=== PATIENT | female | born 1970 | race Caucasian/White ===

== ENCOUNTER 2019-04-17 08:10 | Inpatient (IN) | payer MEDICAID ==
[~2019-04-17] VITALS: Ht 160 cm; Wt 76.0 kg
[2019-04-17 08:15] VITALS: Ht 160 cm; Wt 76.0 kg
[2019-04-17 09:10] LABS: PLATELET COUNT 430 x10^3mcL (130-400); RED CELL DISTRIBUTION WIDTH 17.2 % (11.5-14.5)
[2019-04-17 09:20] LABS: CALCIUM 9.7 mg/dL (8.5-10.1); CARBON DIOXIDE 15.1 mmol/L (21-32); CREATININE SERUM 1.4 mg/dL (0.6-1.0); POTASSIUM SERUM 4.9 mmol/L (3.5-5.1)
[2019-04-17 09:32] LABS: BILIRUBIN TOTAL 0.65 mg/dL (0.20-1.00); T4(THYROXINE) 8.1 ug/dL (4.7-13.3); TOTAL PROTEIN, SERUM 7.9 g/dL (6.4-8.2)
[2019-04-17 09:36] LABS: ALBUMIN 2.8 g/dL (3.4-5.0)
[2019-04-17 11:30] LABS: MAGNESIUM 1.8 mg/dL (1.8-2.4); PHOSPHOROUS 4.3 mg/dL (2.5-4.9)
[2019-04-17 11:42] LABS: BAND NEUTROPHIL 2 % (0-10); BASOPHIL 0 % (0-2); MONOCYTE 6 % (0-7); PLATELET MORPHOLOGY PLATELETS INCREASED; SEGMENTED NEUTROPHILS 91 % (37-75)
[2019-04-17 11:43] LABS: rbc morphology (normal/abnorm) ABNORMAL (NORMAL)
[2019-04-17] MEDS ORDERED: METFORMIN HCL500 MG PO (12:16)
[2019-04-17] MEDS ORDERED: LOSARTAN POTASS50 M1 PO (12:16)
[2019-04-17 15:23] VITALS: BP 154/95
[2019-04-17 18:42] LABS: microscopic required? YES; urine erythrocyte 2+ (NEGATIVE)
[2019-04-17 18:48] LABS: AMPHETAMINE QUAL UR NONE DETECTED (See below)
[2019-04-18 05:18] LABS: BASOPHIL % 2.2 % (0-2); PLATELET COUNT 432 x10^3mcL (130-400); RED CELL DISTRIBUTION WIDTH 18.1 % (11.5-14.5)
[2019-04-18 05:34] LABS: CALCIUM 8.7 mg/dL (8.5-10.1); CARBON DIOXIDE 21.3 mmol/L (21-32); CREATININE SERUM 1.4 mg/dL (0.6-1.0)
[2019-04-18 07:40] VITALS: BP 150/77
[2019-04-18 10:53] LABS: CALCIUM 8.5 mg/dL (8.5-10.1); CARBON DIOXIDE 19.7 mmol/L (21-32); CREATININE SERUM 1.5 mg/dL (0.6-1.0); POTASSIUM SERUM 4.6 mmol/L (3.5-5.1)
[2019-04-18 11:51] VITALS: BP 125/78
[2019-04-18 16:27] VITALS: BP 147/80
[2019-04-18 18:44] VITALS: BP 147/79
[2019-04-18 20:47] VITALS: BP 148/79
[2019-04-19] VITALS (7 sets, daily range): BP systolic 116–153; BP diastolic 64–86
[2019-04-19 07:52] LABS: BASOPHIL % 0.8 % (0-2)
[2019-04-19 07:54] LABS: PLATELET COUNT 413 x10^3mcL (130-400); RED CELL DISTRIBUTION WIDTH 18.1 % (11.5-14.5)
[2019-04-19 07:55] LABS: CALCIUM 8.7 mg/dL (8.5-10.1); CARBON DIOXIDE 20.9 mmol/L (21-32); CREATININE SERUM 1.5 mg/dL (0.6-1.0); POTASSIUM SERUM 4.2 mmol/L (3.5-5.1)
[2019-04-20] VITALS (8 sets, daily range): BP systolic 131–155; BP diastolic 70–86
[2019-04-20 06:45] LABS: CALCIUM 8.4 mg/dL (8.5-10.1); CARBON DIOXIDE 23.5 mmol/L (21-32); CREATININE SERUM 1.7 mg/dL (0.6-1.0); POTASSIUM SERUM 4.3 mmol/L (3.5-5.1)
[2019-04-20 06:47] LABS: BASOPHIL % 0.3 % (0-2)
[2019-04-20 06:48] LABS: PLATELET COUNT 404 x10^3mcL (130-400); RED CELL DISTRIBUTION WIDTH 19.2 % (11.5-14.5)
[2019-04-20] MEDS ORDERED: XARELTO15 M1 PO (14:20)
[2019-04-20] MEDS ORDERED: TOR15I IV (14:20)
[2019-04-20] MEDS ORDERED: APR25 PO (14:20)
[2019-04-20] MEDS ORDERED: TYL325 PO (14:21)
[2019-04-21 05:34] VITALS: BP 136/79
[2019-04-21 07:18] LABS: CALCIUM 9.4 mg/dL (8.5-10.1); CREATININE SERUM 1.7 mg/dL (0.6-1.0); POTASSIUM SERUM 3.9 mmol/L (3.5-5.1)
[2019-04-21 09:07] VITALS: BP 156/87
[2019-04-21 09:56] LABS: BASOPHIL % 0.1 % (0-2); PLATELET COUNT 346 x10^3mcL (130-400)
[2019-04-21 09:59] LABS: RED CELL DISTRIBUTION WIDTH 18.9 % (11.5-14.5)
[2019-04-21 12:59] VITALS: BP 162/51
[2019-04-21 16:40] VITALS: BP 141/79
[2019-04-21 21:16] VITALS: BP 137/73
[2019-04-22 05:53] VITALS: BP 126/71
[2019-04-22 06:49] LABS: BASOPHIL % 0.7 % (0-2); PLATELET COUNT 370 x10^3mcL (130-400)
[2019-04-22 07:02] LABS: CALCIUM 8.7 mg/dL (8.5-10.1); CARBON DIOXIDE 23.6 mmol/L (21-32); CREATININE SERUM 1.7 mg/dL (0.6-1.0); POTASSIUM SERUM 4.7 mmol/L (3.5-5.1)
[2019-04-22 07:32] LABS: RED CELL DISTRIBUTION WIDTH 18.4 % (11.5-14.5)
[2019-04-22 09:02] VITALS: BP 126/71
[2019-04-22 09:37] VITALS: BP 133/74
[2019-04-22 17:44] VITALS: BP 151/84
[2019-04-22 21:22] VITALS: BP 145/78
== END 2019-04-22 21:00 | disposition short-term general hospital (02) | DRG 134 ==
LOC: ED 08:10 → DU 11:25 → IC 11:25 → DU 04-18 17:26 → IC 04-18 17:28 → DU 04-18 18:38 → MU 04-21 17:15
PROVIDERS: Emergency Medicine; Internal Medicine; ADMIT General Practice
DX: I26.99 Other pulmonary embolism without acute cor pulmonale (principal); J96.01 Acute respiratory failure with hypoxia; I50.21 Acute systolic (congestive) heart failure; J90 Pleural effusion, not elsewhere classified; E11.42 Type 2 diabetes mellitus with diabetic polyneuropathy; E11.65 Type 2 diabetes mellitus with hyperglycemia; N18.3 Chronic kidney disease, stage 3 (moderate); E87.1 Hypo-osmolality and hyponatremia; Z89.422 Acquired absence of other left toe(s); Z68.27 Body mass index [BMI] 27.0-27.9, adult; Z79.84 Long term (current) use of oral hypoglycemic drugs
CPT/HCPCS: 36600; 82962; 83880; 87107; 94150; G0378; J1450; J1644; J1885; J1940; J2270; J2405; J2543; J3490; J7050; J7620; Q0092; Q9967

== ENCOUNTER 2019-05-05 11:12 | Inpatient (IN) | payer MEDICAID ==
[~2019-05-05] VITALS: Ht 160 cm; Wt 73.1 kg
[~2019-05-05 11:12] MED LIST: APR25 PO; LOSARTAN POTASS50 M1 PO; METFORMIN HCL500 MG PO; TOR15I IV; TYL325 PO; XARELTO15 M1 PO
[2019-05-05 11:16] VITALS: Ht 160 cm; Wt 73.1 kg
--- NOTE | 2019-05-05 11:17 | NUR ---
PT TO ROOM 7 VIA WC, PT ASSISTED INTO GOWN, ASSISTED INTO HOSPITAL GOWN, PLACED ON CM.
--- NOTE | 2019-05-05 11:33 | NUR ---
PT AWAKE AND ALERT. PT PRESENTS TO ED WITH C/O SOB AND RT SIDED BACK PAIN SINCE YESTERDAY. PT IS VISIBLY IN SOME DISTRESS. PT IS TACHYPNEIC. PT ABLE TO SPEAK IN COMPLETED SENTENCES. PT DENIES COUGH BUT STATES SHE HAS THE URGE TO COUGH BUT CANNOT. PT'S SKIN IS WARM DRY AND INTACT. PT PLACED ON FULL CM. DR GRAMAJO AT BEDSIDE FOR MSE.
--- NOTE | 2019-05-05 11:38 | NUR ---
PT HAD A RECENT 3RD 4TH AND 5TH TOE AMPUTATION ON THE LT FOOT. NO SIGNS OF INFECTION NOTED.
[2019-05-05 12:06] LABS: PLATELET COUNT 485 x10^3mcL (130-400)
[2019-05-05 12:24] LABS: CALCIUM 9.1 mg/dL (8.5-10.1); CREATININE SERUM 1.5 mg/dL (0.6-1.0); POTASSIUM SERUM 4.6 mmol/L (3.5-5.1)
[2019-05-05 12:29] LABS: ALBUMIN 2.8 g/dL (3.4-5.0); BILIRUBIN TOTAL 0.44 mg/dL (0.20-1.00); TOTAL PROTEIN, SERUM 7.3 g/dL (6.4-8.2)
--- NOTE | 2019-05-05 12:44 | NUR ---
DR GRAMAJO AT BEDSIDE TO DISCUSS PLAN OF CARE
[2019-05-05] MEDS ORDERED: GLIPIZIDE2.5 M1 PO (12:47)
[2019-05-05] MEDS ORDERED: FERROUS SULFAT325 M2 PO (12:48)
[2019-05-05] MEDS ORDERED: STOOL SOFTENER50 MG PO (12:49)
[2019-05-05] MEDS ORDERED: CLOPIDOGREL75 M1 PO (12:49)
[2019-05-05] MEDS ORDERED: APAP500 MG PO (12:49)
[2019-05-05] MEDS ORDERED: AMLODIPINE BESY10 M2 PO (12:50)
[2019-05-05] MEDS ORDERED: BACTRIM1 TAB PO (12:51)
[2019-05-05 13:03] LABS: BAND NEUTROPHIL 0 % (0-10); MONOCYTE 7 % (0-7); SEGMENTED NEUTROPHILS 88 % (37-75)
[2019-05-05 13:06] LABS: BASOPHIL 0 % (0-2); PLATELET MORPHOLOGY PLATELETS INCREASED
[2019-05-05 13:07] LABS: rbc morphology (normal/abnorm) ABNORMAL (NORMAL)
[2019-05-05 13:27] LABS: UA SPECIFIC GRAVITY 1.025 (1.005-1.035); microscopic required? YES; urine erythrocyte 1+ (NEGATIVE)
--- NOTE | 2019-05-05 13:36 | NUR ---
HEPARIN DRIP INITIATED AT THIS TIME.
--- NOTE | 2019-05-05 13:55 | NUR ---
RESIDENT AT BEDSIDE TO DISCUSS PLAN OF CARE
[2019-05-05 14:25] LABS: MAGNESIUM 2.4 mg/dL (1.8-2.4); PHOSPHOROUS 4.5 mg/dL (2.5-4.9)
--- NOTE | 2019-05-05 14:25 | NUR ---
PORTABLE ULTRASOUND AT BEDSIDE
[2019-05-05 14:30] LABS: CHOLESTEROL/HDL RATIO 2.2
[2019-05-05 14:34] LABS: FREE T4 1.16 ng/dL (0.76-1.46); FREE THYROXINE INDEX 2.8 ug/dL (1.4-4.5); T4(THYROXINE) 7.7 ug/dL (4.7-13.3)
[2019-05-05 14:55] LABS: AMPHETAMINE QUAL UR NONE DETECTED (See below)
--- NOTE | 2019-05-05 15:30 | NUR ---
PT RESTING IN HIGH FOWLERS. PT REPORTS SHE IS FEELING A LITTLE BETTER. PT ON FULL CM. CALL LIGHT WITHIN REACH. RESP E/U
[2019-05-05 15:55] LABS: T3 TOTAL 0.62 ng/mL
--- NOTE | 2019-05-05 16:22 | NUR ---
REPORT CALLED TO NISHA, ICU NURSE
--- NOTE | 2019-05-05 16:30 | NUR ---
RECIEVED PATIENT FROM ED AT THIS TIME VIA GURNEY ATTACHED TO BOTTOM FILLER ACCOMPANIED BY NURSE. PATIENT BALE TO WALK FROM GURNEY TO BED WITH MINIMAL ASSIST, STEDAY GAIT NOTED. VS UPON ADMISSION: TEMP 98.1 F, NIBP 148/93, MAP 103, HR 86, RR 21 AND 02 SAT 91% ON 4L NC. RESPIRATIONS ARE SHALLOW AND LABORED. PATIENT CURRENLTY DENIES PAIN AT THIS TIME. NITRO PATCH NOTED TO LEFT UPPER CHEST. HX OF PE, PT CURRENLTY ON HEPARIN DRIP INFUSING TO LFA IV WITH NO SIGNS OF INFILTRATION NOTED. 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 PATIENT IS A/0 X4. LANGUAGE BARRIER-SAUDI ARABIAN SPEAKING. ABLE TO FOLLOW COMMANDS AND MAKE NEEDS KNOWN. BED TO LOWEST POSITION, SIDE RAILS UP X2, CALL LIGHT WITHIN REACH. WILL CONTINUE TO MONITOR.
[2019-05-05 16:53] VITALS: BP 148/93
[2019-05-05 17:27] VITALS: BP 153/76
[2019-05-05 19:25] VITALS: BP 151/70
--- NOTE | 2019-05-05 20:13 | NUR ---
PTT 108.0 CALLED FROM LAB. HEPARIN GTT HELD AT THIS TIME FOR 1 HOUR AND WILL REDUCE INFUSION BY 200 UNITS/HR PER HEPARIN DRIP PROTOCOL. WILL CONT TO MONITOR.
--- NOTE | 2019-05-05 20:40 | NUR ---
RT KAILA AT BEDSIDE TO GIVE PT BREATHING TREATMENT.
--- NOTE | 2019-05-05 21:13 | NUR ---
HEPARIN GTT TITRATED BACK ON AND REDUCED INFUSION TO 110O UNITS/HR PER HEPARIN GTT PROTOCOL. WILL ORDER NEXT PTT AT 05/06/19 @ 0115.
[2019-05-05 23:05] VITALS: BP 144/80
--- NOTE | 2019-05-06 01:10 | NUR ---
ASSISTED PT TO BEDSIDE COMMODE. PT HAD APPROX OF 400 ML OF CLEAR YELLOW URINE AND MODERATE AMOUNT OF BROWN STOOL.
--- NOTE | 2019-05-06 01:20 | NUR ---
911 EMERGENCY SERVICES DISPATCHERFRIDA CLIFTON AT BEDSIDE TO DRAW PTT LAB.
--- NOTE | 2019-05-06 02:21 | NUR ---
LAB CALLED, PTT 58.4. NO CHANGE IN TITRATION PER HEPARIN GTT PROTOCOL. WILL ORDER NEXT PTT LAB.
--- NOTE | 2019-05-06 02:28 | NUR ---
DR. DUKE AT BEDSIDE WITH NATALIE NARAYANAN FOR ASSIST IN TRANSLATION TO UPDATE PT ON POC.
[2019-05-06 03:32] VITALS: BP 138/74
[2019-05-06 05:28] LABS: BASOPHIL % 0.9 % (0-2)
[2019-05-06 05:34] LABS: CARBON DIOXIDE 20.6 mmol/L (21-32); CREATININE SERUM 1.5 mg/dL (0.6-1.0); MAGNESIUM 2.3 mg/dL (1.8-2.4); PHOSPHOROUS 4.4 mg/dL (2.5-4.9); POTASSIUM SERUM 4.8 mmol/L (3.5-5.1)
[2019-05-06 05:39] LABS: PLATELET COUNT 463 x10^3mcL (130-400); RED CELL DISTRIBUTION WIDTH 17.6 % (11.5-14.5)
--- NOTE | 2019-05-06 07:15 | NUR ---
RECEIVED PT'S REPORT FROM LEAVING NURSE. PT REST ON BED, AA/O X4. PT BREATHING ON O2 4L VIA NC, EVEN, UNLABORED. SHALLOW BREATHING. PT DENIED CHEST PAIN AND SOB AT THIS TIME O2 SAT 95%. PT ON HEPARIN DRIP 1100 U/HR, WAITING FOR PTT RESULT. WILL CONTINUE TO MONITOR.
--- NOTE | 2019-05-06 07:15 | NUR ---
GAVE REPORT TO LADY COLE. UPDATES GIVEN, QUESTIONS ANSWERED. ENDORSED CARE.
--- NOTE | 2019-05-06 07:44 | NUR ---
ECHOCARDIOGRAM PENDING-HAVING BREAKFAST
[2019-05-06 08:00] VITALS: BP 145/70
--- NOTE | 2019-05-06 08:19 | NUR ---
PT'S PTT 63.0 WITHIN THERAPEUTIC RANG, 2ND THERAPEUTIC. HEPARIN DRIP REMAINING 1100U/HR. WILL SCHEDULE PT'S NEXT PTT TOMORROW DAILY.
--- NOTE | 2019-05-06 09:56 | NUR ---
DR. TRIPP, RESIDENTS, DESIGN CELL ENGINEER AND PRIMARY RN AT BEDSIDE FOR ROUNDING. PLAN OF CARE DISCUSSED. ALL PARTIES IN AGREEMENT. INFORMED OF DR. CUELLO STATING PT CAN BE TRANSFERRED TO LOWER ACUITY UNIT.
--- NOTE | 2019-05-06 10:09 | NUR ---
RT WEANING PT O2 FROM 4 L TO 3L VIA NC. PT TOLERATE WELL, O2 SAT 93%. SHALLOW BREATHING NOTED.
--- NOTE | 2019-05-06 11:50 | NUR ---
PT'S AT BEDSIDE. PT'S CONDITION UPDATED TO HER PER PT'S CONSENT. PT IS AWARE SHE WILL TRANFERED TO [facility] UNIT TODAY PER ORDER.
[2019-05-06 12:28] VITALS: BP 147/73
--- NOTE | 2019-05-06 12:38 | NUR ---
Discount pharmacy card and list to low cost medical clinics given to patient by Yesenia.
--- NOTE | 2019-05-06 15:14 | NUR ---
PT IS READY TO TRANSFER TO [facility], PT'S REPORT GIVEN TO RECEIVING NURSE DECLAN. PT RESTING ON BED, NO COMPLAIN OF SOB AND CHEST PAIN. PT'S VS STABLE: BP 149/87, HR 93, O2 SAT 96% VIA 3L NC. WILL TRANSFER PT VIA WHEELCHAIR.
--- NOTE | 2019-05-06 15:55 | NUR ---
ASSUMED CARE OF PATIENT. TELEMONITOR #4 PLACED. NO APPARENT DISTRESS NOTED. NO COMPLAINTS OF PAIN OR DISCOMFORT. WILL CONTINUE TO MONITOR.
--- NOTE | 2019-05-06 16:13 | NUR ---
PATIENT ALERT AND ORIENTED X4. ON TELE #4, SHOWING SINUS RHYTHM WITH DEPRESSED T WAVES. ALL PULSES PALPABLE, BLE +1 EDEMA. LUNG SOUNDS CLEAR BILATERALLY WITH NO ADVENTITIOUS BREATH SOUNDS, BILATERAL BASES DIMINISHED. CURRENTLY UTILIZING 3L O2 VIA NC. BOWEL SOUNDS ACTIVE IN ALL 4 QUADRANTS, ENDORSING LAST BM THIS MORNING. VOIDING WITH NO ISSUE. UTILIZING BEDSIDE COMMODE. GENERALIZED WEAKNESS. LLE DRESSING INTACT, PICTURES FROM ICU IN CHART. DRESSING REMAINS CDI AT THIS TIME. NO COMPLAINTS AT THIS TIME. IV TO LFA PATENT AND INFUSING NS AT 100ML/HR AND HEPARIN DRIP AT 1100 UNITS/HR. ORIENTED TO ROOM. ALL NEEDS MET. BED LOCKED AND IN LOWEST POSITION. CALL LIGHT WITHIN REACH. WILL CONTINUE TO MONITOR.
[2019-05-06 16:34] VITALS: BP 144/75
[2019-05-06 17:55] VITALS: BP 144/82
--- NOTE | 2019-05-06 18:40 | NUR ---
PATIENT SEEN RESTING IN BED WITH EQUAL AND UNLABORED RESPIRATIONS. REMAINS ON 3L O2 VIA NC. IV ON LFA PATENT AND CONTINUES TO INFUSE 10ML/HR NS AND 1100 UNITS/HR HEPARIN. NO REDNESS/SWELLING NOTED. DRESSING TO LLE REMAINS CDI. WILL ENDORSE CARE TO ONCOMING RN.
--- NOTE | 2019-05-06 19:38 | NUR ---
RECEIVED PATIENT IN BED AWAKE, ALERT AND ORIENTED WITH NO SIGN OF ACUTE RESPIRATORY DISTRESS. BREATHING EASY AND NONLABOR SATTING AT 98% ON O2 AT 3L VIA NC. TELE#4 SR WITH ELEVATED T WAVE ON MONITOR, DENIES CHESTPAIN. IV TO LFA INTACT AND INFUSING WELL, ON HEPARIN DRIP INFUSING AT 1100 UNITS/HR PER PROTOCOL. WILL CONTINUE TO MONITOR. CALL LIGHT WITHIN REACH.
[2019-05-06 20:56] VITALS: BP 144/82
--- NOTE | 2019-05-07 00:01 | NUR ---
PATIENT APPEARS SLEEPING WITH EYES CLOSED, NO SIGN OF PAIN AND DISCOMFORT NOTED. WILL CONTINUE TO MONITOR.
--- NOTE | 2019-05-07 05:06 | NUR ---
SLEPT FAIRLY DENIES PAIN AND DISCOMFORT THE ENTIRE SHIFT. ALL NEEDS ATTENDED.
[2019-05-07 05:21] VITALS: BP 138/79
[2019-05-07 06:33] LABS: CALCIUM 8.6 mg/dL (8.5-10.1); CARBON DIOXIDE 22.8 mmol/L (21-32); CREATININE SERUM 1.4 mg/dL (0.6-1.0); POTASSIUM SERUM 4.4 mmol/L (3.5-5.1)
[2019-05-07 06:58] LABS: BASOPHIL % 1.3 % (0-2)
[2019-05-07 07:20] LABS: PLATELET COUNT 448 x10^3mcL (130-400); RED CELL DISTRIBUTION WIDTH 17.1 % (11.5-14.5)
--- NOTE | 2019-05-07 07:29 | NUR ---
REPORT FROM LAB = PATIENT'S PTT = 68.0; HEPARIN DOSE TO 1000 UNITS/HR PER PROTOCOL. NEXT PTT SCHEDULED AT 1130.
--- NOTE | 2019-05-07 08:00 | NUR ---
SHIFT ASSESSMENT DONE. PATIENT POLISH SPEAKING, A/A/OX4. TELE#4, SR W/ DEPRESSED S-T SEGMENT. HR =79. DENIED CHEST PAIN. BREATHING SOUND DIMINISHED ASHTYN BASES. O2 SAT 98% ON 3L VIA N/C. SOB ON EXCERTION. ON HEPARIN DRIP 1000 UNITS/HR W/ NS 10CC/HR. IV SITE TO LFA INTACT. UNHEALED SURGICAL WOUND TO L FOOT AFTER LT 3RD-4TH-5TH TOES AMPUTATION. DRSG TO LT FOOT D/I. DENIED PAIN. BSC IN PLACE. CALL LIGHT IN REACH.
--- NOTE | 2019-05-07 08:46 | NUR ---
ECHOCARDIOGRAM CANCELLATION REQUESTED-LAST ECHO-04/15-COPY IN CHART
[2019-05-07 09:20] VITALS: BP 132/72
--- NOTE | 2019-05-07 11:12 | NUR ---
WOUND CARE EVALUATION NOTE: REASON FOR EVALUATION: LEFT FOOT SURGICAL WOUND SKIN ASSESSMENT DONE WITH THIS 48 Y/O FEMALE PT ADMITTED FROM HOME TO [facility] WITH S/P SURGICAL WOUND TO LEFT FOOT TMA. PAST MEDICAL HX INCLUDES PE,HTN,DM CHARGE NURSE [place] TO [place] WITH DESCRIPTION OF WOUND CONDITION, TREATMENT PLAN AND WOUND CARE INSTRUCTIONS. PT ALSO, INSTRUCTED TO FOLLOW UP SURGEON OUT PATIENT.PER PT. SHE HAD AN APPOINTMENT MADE PRIOR THIS ADMISSION PLAN OF CARE DISCUSSED WITH PRIMARY RN AND PT. ALL QUESTIONS ANSWERED AND PT VERBALIZING UNDERSTANDING AND AGREEABLE. INTEGUMENTARY: -LEFT FOOT SURGICAL WOUND S/P TMA, 9X5CM DEPTH UTD WITH 100% MIXED BROWN AND YELLOW SLOUGH TISSUE, NO DRAINAGE WITH MILD ODOR, LUIS-WOUND SKIN INTACT RECOMMENDATIONS: -FOLLOW UP SURDEON OUT PATIENT -CLEANSE LEFT FOOT SURGICAL WOUND WITH WOUND CARE SOLUTION, PACK WITH SOAKED 4X4 BETADINE GUAZES, COVER WITH DRY DRESSING AND WRAP JM BANDAGE QD AND PRN IF SOILING -APPLY HEEL RAISER TO LEFT HEEL WHEN IN BED -OFFLOAD BILATERAL HEELS BY PLACING PILLOWS UNDER CALVES UNLESS OTHERWISE CONTRAINDICATED -PRESSURE REDISTUBUTION SURFACE THERAPY -ASSIST TURN AND REPOSITION Q2H -CONTINUE TO FOLLOW RD RECOMMENDATIONS -PLEASE DISCHARGE WITH TREATMENT SUPPLIES ALL ABOVE RECOMMENDATIONS DISCUSSED WITH PRIMARY RN PLEASE CONTACT WOUND CARE NURSE FOR ANY QUESTION AND CHANGE OF WOUND CONDITION.
--- NOTE | 2019-05-07 12:35 | NUR ---
LAB REPORTED PTT = 58.8; KEEP HEPARIN DOSE AT 1000 UNITS/HR. NEXT PTT SCHEDULED AT 1530 PER PROTOCOL.
[2019-05-07 13:24] VITALS: BP 124/72
--- NOTE | 2019-05-07 16:05 | NUR ---
PTT = 60.6; WITHIN THERAPEUTIC RANGE X2. PT = 12.0; INR = 1.2. WOULD GIVE COUMADIN 10MG PO TODAY PER ORDER.
[2019-05-07 17:55] VITALS: BP 115/71
--- NOTE | 2019-05-07 18:00 | NUR ---
DR. DOAN CAME TO SEE PATIENT. NEW ORDER OF LASIX 40MG IVP GIVEN.
--- NOTE | 2019-05-07 18:27 | NUR ---
NO SOB ON 2L VIA N/C. O2 SAT 98%. ON HEPARIN DRIP. IV TO LFA INTACT. FINISHED 80% CCHO DIET DINNER. DRSG TO L FOOT D/C/I. DENIED PAIN. VOID X3, 900CC VIA BSC. NO BM THIS SHIFT. ENDORSED CARE TO NOC NURSE.
--- NOTE | 2019-05-07 19:26 | NUR ---
RECEIVED PATIENT IN BED AWAKE WITH NO SIGN OF PAIN AND DISCOMFORT. BREATHING EASY AND NONLABOR SATTING AT 98% ON O2 AT 2L VIA NC. TELE#4 SR WITH DEPRESSED T WAVE ON MONITOR. ON HEPARIN DRIP INFUSING AT 10ML/HR (1000 UNITS/HR) PER PROTOCOL. NEXT PTT SCHEDULED AT 0500 05/08/19. WILL CONTINUE TO MONITOR. CALL LIGHT WITHIN REACH.
[2019-05-07 20:51] VITALS: BP 133/72
--- NOTE | 2019-05-08 01:45 | NUR ---
APPEARS SLEEPING WITH EYES CLOSED BREATHING EASYA ND NONLABOR. WILL CONTINUEN TO MONITOR.
--- NOTE | 2019-05-08 05:24 | NUR ---
SLEPT AT LONG INTERVALS, DENIES PAINA ND DISCOMFORT THE ENTIRE SHIFT. ALL NEEDS ATTENDED.
[2019-05-08 05:52] VITALS: BP 128/61
[2019-05-08 06:32] LABS: CALCIUM 9.2 mg/dL (8.5-10.1); CARBON DIOXIDE 18.6 mmol/L (21-32); CREATININE SERUM 1.4 mg/dL (0.6-1.0); POTASSIUM SERUM 4.1 mmol/L (3.5-5.1)
--- NOTE | 2019-05-08 07:45 | NUR ---
ALERT AND ORIENTED. ON 02 2L NC. LUNG SOUNDS CLEAR,DIMINISHED. NO RESP DISTRESS. RT PROTOCOL HEPARIN PROTOCOL FOR P.E. CURRENTLY INFUSING 1000/10 CC HOUR. USES BEDSIDE COMMODE. ALSO HAS WALKER IN ROOM. LEFT FOOT WRAPPED CLEAN AND DRY. VSS. CALL LIGHT WITHIN REACH. SITTING UP EATING BREAKFAST.
[2019-05-08 07:50] VITALS: BP 115/58
--- NOTE | 2019-05-08 07:55 | NUR ---
T.C. TO LAB FOR PTT RESULT. 55.3. NO CHANGE IN HEPARIN INFUSION RATE. CONTINUES AT 1000 UNITS/10 ML Q 1 HOUR. NEXT PTT 05/09/19.
[2019-05-08 08:26] LABS: BASOPHIL % 1.3 % (0-2); PLATELET COUNT 442 x10^3mcL (130-400); RED CELL DISTRIBUTION WIDTH 18.3 % (11.5-14.5)
--- NOTE | 2019-05-08 08:51 | NUR ---
PT C/O TIGHTNESS TO LEFT FOOT DRESSING. SHOWED PT AND FAMILY DRESSING IS ACTUALLY LOOSE. ELEVATED ON PILLOW. CONTINUES TO DENY NEED FOR PAIN MED.
[2019-05-08] MEDS ORDERED: LASIX20 MG PO (10:55)
[2019-05-08] MEDS ORDERED: ISOSORBIDE DINI10 MG PO (10:58)
[2019-05-08] MEDS ORDERED: CARVEDILOL12.5 M1 PO (10:59)
[2019-05-08] MEDS ORDERED: COUMADIN3 MG PO (11:01)
[2019-05-08 11:49] VITALS: BP 128/62
--- NOTE | 2019-05-08 12:09 | NUR ---
DR. TIERNEYED IN TO REVIEW D/C INSTRUCTIONS WITH PT. ASSISTED WITH TRANSLATION IN [place]. PT WAS MADE AWARE OF ALL NEW MEDS AND IMPORTANCE OF TAKING THEM DIRRECTED. PT TO TAKE COUMADIN DAILY AND F/U AT COUMADIN CLINIC ON SATURDAY ON AT NOON ADDRESS AND PHONE NUMBER WILL BE PROVIDED IN D/C PAPERWORK. PT INSTRUCTED TO STOP TAKING CURRENT HOME MEDS AND TAKE NEW PRESCRIPTION SINCE PT HAD ALL CARDIAC MEDS CHANGE BY CONSTRUCTION LABORER. PT VEBALIZED UNDERSTANDING OF INSTRUCTIONS. ALL QUESTIONS AND CONCERNS ADDRESSED.
[2019-05-08 12:50] VITALS: BP 128/62
[2019-05-08] MEDS ORDERED: BAYER ASPIRIN C81 MG PO (13:02)
--- NOTE | 2019-05-08 13:42 | NUR ---
PT GOING HOME. REMOVED LEFT FOOT DRESSING PHOTO TAKEN CLEANSED REAPPLIED IODINE AND GUAZE DRESSING. IV DC'D TELE # 4 RETURNED TO TELE STATION. WAITING FOR TO COME TO REVIEW DC INSTRUCTIONS.
== END 2019-05-08 14:38 | disposition home or self-care (01) | DRG 134 ==
LOC: ED 11:12 → IC 12:56 → DU 05-06 15:38
PROVIDERS: Emergency Medicine; ADMIT Internal Medicine
DX: I26.99 Other pulmonary embolism without acute cor pulmonale (principal); J96.01 Acute respiratory failure with hypoxia; N17.0 Acute kidney failure with tubular necrosis; I13.0 Hypertensive heart and chronic kidney disease with heart failure and stage 1 through stage 4 chronic kidney disease, or unspecified chronic kidney disease; I50.23 Acute on chronic systolic (congestive) heart failure; N18.3 Chronic kidney disease, stage 3 (moderate); E11.22 Type 2 diabetes mellitus with diabetic chronic kidney disease; E11.65 Type 2 diabetes mellitus with hyperglycemia; I42.9 Cardiomyopathy, unspecified; D53.9 Nutritional anemia, unspecified; E87.1 Hypo-osmolality and hyponatremia; Z89.422 Acquired absence of other left toe(s); Z68.29 Body mass index [BMI] 29.0-29.9, adult; Z86.711 Personal history of pulmonary embolism; Z79.01 Long term (current) use of anticoagulants; Z79.84 Long term (current) use of oral hypoglycemic drugs
CPT/HCPCS: 36600; 82962; 83880; 84439; 94150; G0378; J1644; J1815; J1940; J7030; J7620; Q0092

== ENCOUNTER 2019-08-27 08:03 | Inpatient (IN) | payer OTHER ==
[~2019-08-27] VITALS: Ht 160 cm; Wt 78.9 kg
[~2019-08-27 08:03] MED LIST changes: +AMLODIPINE BESY10 M2 PO; +APAP500 MG PO; +BACTRIM1 TAB PO; +BAYER ASPIRIN C81 MG PO; +CARVEDILOL12.5 M1 PO; +CLOPIDOGREL75 M1 PO; +COUMADIN3 MG PO; +FERROUS SULFAT325 M2 PO; +GLIPIZIDE2.5 M1 PO; +ISOSORBIDE DINI10 MG PO; +LASIX20 MG PO; -METFORMIN HCL500 MG PO; +METFORMIN HYDR500 M1 PO; +STOOL SOFTENER50 MG PO
[2019-08-27 08:07] VITALS: Ht 160 cm; Wt 78.9 kg
[2019-08-27 09:04] LABS: BASOPHIL % 0.5 % (0-2); PLATELET COUNT 309 x10^3mcL (130-400)
[2019-08-27 09:06] LABS: RED CELL DISTRIBUTION WIDTH 21.5 % (11.5-14.5)
[2019-08-27 09:35] LABS: ALKALINE PHOSPHATASE 133 U/L (46-116); ALT/SGPT 13 U/L (14-59); AST/SGOT 11 U/L (15-37); BILIRUBIN TOTAL 0.3 mg/dL (0.20-1.00); CALCIUM 8.6 mg/dL (8.5-10.1); CARBON DIOXIDE 16.1 mmol/L (21-32); CHLORIDE SERUM 111 mmol/L (98-107); CREATININE SERUM 1.9 mg/dL (0.6-1.0); GFR1 30 mL/min; GLUCOSE SERUM 111 mg/dL (74-106); POTASSIUM SERUM 5.4 mmol/L (3.5-5.1); SODIUM SERUM 140 mmol/L (136-145); TOTAL PROTEIN, SERUM 7.2 g/dL (6.4-8.2); rbc morphology (normal/abnorm) ABNORMAL (NORMAL)
[2019-08-27 09:55] LABS: ALBUMIN 3.2 g/dL (3.4-5.0)
[2019-08-27 10:40] LABS: microscopic required? YES; urine erythrocyte NEGATIVE (NEGATIVE)
[2019-08-27 14:12] VITALS: BP 134/67
[2019-08-27 16:46] VITALS: BP 136/76
[2019-08-27 20:23] VITALS: BP 146/83
[2019-08-28 05:26] VITALS: BP 123/69
[2019-08-28 06:39] LABS: CALCIUM 8.4 mg/dL (8.5-10.1); CREATININE SERUM 1.8 mg/dL (0.6-1.0); POTASSIUM SERUM 5.3 mmol/L (3.5-5.1)
[2019-08-28 07:56] VITALS: BP 111/62
[2019-08-28 08:09] LABS: RED CELL DISTRIBUTION WIDTH 21.2 % (11.5-14.5)
[2019-08-28 11:43] VITALS: BP 131/70
[2019-08-28 15:54] LABS: PLATELET COUNT 279 x10^3mcL (130-400)
[2019-08-28 16:10] VITALS: BP 125/65
[2019-08-28 16:13] LABS: BAND NEUTROPHIL 0 % (0-10); BASOPHIL 0 % (0-2); MONOCYTE 8 % (0-7); SEGMENTED NEUTROPHILS 78 % (37-75)
[2019-08-28 16:15] LABS: rbc morphology (normal/abnorm) ABNORMAL (NORMAL)
[2019-08-28 16:16] LABS: PLATELET MORPHOLOGY PLATELETS INCREASED; ovalocyte/elliptocyte 1+
== END 2019-08-28 19:24 | disposition home or self-care (01) | DRG 194 ==
LOC: ED 08:03 → DU 11:19
PROVIDERS: Emergency Medicine; ADMIT Internal Medicine Pulmonary Disease
DX: I13.0 Hypertensive heart and chronic kidney disease with heart failure and stage 1 through stage 4 chronic kidney disease, or unspecified chronic kidney disease (principal); J91.8 Pleural effusion in other conditions classified elsewhere; E11.21 Type 2 diabetes mellitus with diabetic nephropathy; E87.2 Acidosis; N17.9 Acute kidney failure, unspecified; N18.3 Chronic kidney disease, stage 3 (moderate); E11.51 Type 2 diabetes mellitus with diabetic peripheral angiopathy without gangrene; I42.9 Cardiomyopathy, unspecified; E87.5 Hyperkalemia; E11.22 Type 2 diabetes mellitus with diabetic chronic kidney disease; R33.9 Retention of urine, unspecified; I50.23 Acute on chronic systolic (congestive) heart failure; E03.9 Hypothyroidism, unspecified; Z68.26 Body mass index [BMI] 26.0-26.9, adult; Z89.512 Acquired absence of left leg below knee; Z86.711 Personal history of pulmonary embolism; Z79.01 Long term (current) use of anticoagulants; Z79.84 Long term (current) use of oral hypoglycemic drugs
CPT/HCPCS: 36600; 82962; 83880; 97116-GP; G0378; J1940; J3490; Q0092